=== PATIENT | male | born 1995 | race African-American/Black ===

== ENCOUNTER 2017-08-17 12:30 | Emergency (ER) | payer OTHER ==
[~2017-08-17] VITALS: Ht 188 cm; Wt 75.9 kg
[~2017-08-17 12:30] MED LIST: DOXYCYCLINE 10100 MG PO; LEVAQUIN 5500 MG/TA1 PO; NO HOME MEDICATIONS; NORCO 325 MG-51 TAB PO; PYRIDIUM200 M1 PO; SUDAFED60 MG PO; [UNRECOGNIZED DRUG - OTHER]
[2017-08-17 12:34] VITALS: BP 146/65; PULSE 99; TEMP 98.3
== END 2017-08-17 14:06 | disposition left against medical advice (07) ==
LOC: COL.ER 12:30
DX: R21 Rash and other nonspecific skin eruption (principal)